=== PATIENT | female | born 1970 | race Caucasian/White ===

== ENCOUNTER → 2016-12-19 | Outpatient (CLI) | payer BC, OTHER ==
[~2016-12-19] VITALS: Ht 162.6 cm; Wt 51.4 kg
[~2016-12-19] MED LIST: ALDACTONE25 MG PO; ALLEGRA ALLERG180 MG PO; BENADRYL25 MG; CARBATROL200 MG PO; CYMBALTA60 MG PO; FLONASE 0.05%50 MCG NASAL; HYDROCODONE-AP1 EAC6 PO; LYRICA 50 MG50 MG; LYRICA150 MG PO; MICROGESTIN1 EAC1 PO; NEURONTIN 300300 M1 PO; NEURONTIN600 MG PO; NORCO 5-325 TA1 EACH PO; PROZAC20 MG PO
--- NOTE | ~2016-12-19 | HPC ---
[facility] [place] [address] PAIN MANAGEMENT CONSULTATION Name: FRANCESCA DUARTE Room #: REG LUDA TempleFrancoisNinoskaFrancois#: [id number] Admission: 12/19/16 Attend Phys: Leonidas Streeter DO Discharge: Date of : 72 Report #: [id number] THIS REPORT FOR: //name// CC: Sheyla Streeter The patient is looking a pleasant 46-year-old female, prior seen for RSD left lower extremity complex regional pain syndrome. She had foot surgery of left lower extremity, 04/01/2016, left fibular sesamoidectomy and excision of neuroma. Unfortunately since that time, she has had ongoing neuropathic pain and discoloration of foot. We have done 2 series of 2 lumbar sympathetic blocks, 07/17/2016, 07/21/2016, and 07/25/2016 and again 09/01/2016, 09/05/2016, and 09/08/2016. She really only got short-term relief, only one of the blocks afforded very good relief. She returns to the pain clinic today. We had discussed the spinal cord stimulator, in fact had received authorization for same, having had a psychological evaluation showing no impediments. Her SCS trial was plannned for last month (October 2016) , but symptoms got a little bit better, so the patient wisely postponed. Unfortunately symptoms have recurred without antecedent trauma, somewhat with a vengance. The patient notes pain is quite problematic. She rates it 7/10. She did resume her gabapentin and Dr. Andreas Pete started her on some Cymbalta as well, currently taking 60 mg (gabapentin 300 mg 5 a day). She has some efficacy with this, but notes pain is significantly interfering with function. She is desirous of moving forward with spinal cord stimulator at this point. PHYSICAL EXAMINATION: Shows a 46-year-old female, BMI is 19.5 kilograms per meter squared. Again, subjective pain score 7/10. Vital signs are stable as noted in the EMR. She has a profound dusky changes in the left foot, cool to palpation up to about mid calf. Decreased range of motion. Hyperpathia and allodynia noted throughout the foot. ASSESSMENT: Reflex sympathetic dystrophy, left lower extremity complex regional pain syndrome. RECOMMENDATIONS: I had a prolonged visit with the patient today from 9:24 to 9:50, greater than 50% of this 25 plus minute visit was spent counseling the patient. We have elected to add a sodium channel membrane stabilizing agent to see if we can get some synergy with the gabapentin, Tegretol 200 mg b.i.d. I did renew her gabapentin 300 mg 1 in the morning, 1 in the afternoon, 3 at night. I will follow up in 1 month to evaluate efficacy of medication changes. If symptoms are not abating significantly, we will move forward with spinal cord stimulator trial. We reviewed risks and benefits of SCS in general, and specifically noted the differences between high frequency stim (Nevro device) wherein patient typically does not feel the stimulation, but also must charge daily and cannot [address] [address] PAIN MANAGEMENT CONSULTATION Name: DAERoshanFRANCESCA PAINTER Room #: REG LUDA Treviño#: [id number] Admission: 12/19/16 Attend Phys: Leonidas Streeter DO Discharge: Date of : 72 Report #: [id number] get an MRI of the spine versus the more conventional SCS devices which do produce a parathesia, but are MRI compatible and my require less frequent charging. Given the issues with patients foot which started this issue, she may benefit from using a SCS which may allow the patient to get MRIs of the lumbar spine and the lower extremity if needed. Ultimately I will defer to the patient and of course what her insurance will allow. ASSESSMENT: Neuropathic pain, left lower extremity complex regional pain syndrome requiring complex medication management, discharged in good and stable condition after prolonged visit. <ELECTRONICALLY SIGNED> By: Leonidas Streeter DO 12/22/16 1228 [id number] Leonidas Streeter DO /nt
[2016-12-19 09:18] VITALS: BP 129/84
== END | disposition home or self-care (01) ==
LOC: PAIN 11-06 15:14
DX: G90.522 Complex regional pain syndrome I of left lower limb (principal); M79.2 Neuralgia and neuritis, unspecified

== ENCOUNTER → 2017-02-16 | Outpatient (CLI) | payer BC, OTHER ==
[~2017-02-16] VITALS: Ht 162.6 cm; Wt 52.6 kg
[2017-02-16 13:06] VITALS: BP 126/85
== END ==
LOC: PAIN 07:11
DX: G89.4 Chronic pain syndrome (principal); F41.8 Other specified anxiety disorders

== ENCOUNTER → 2017-02-19 | Outpatient (CLI) | payer BC, OTHER ==
[~2017-02-19] VITALS: Ht 162.6 cm; Wt 52.4 kg
[~2017-02-19] MED LIST changes: +AUGMENTIN 875875 MG PO; +DIPHENHIST50 MG PO
--- NOTE | ~2017-02-19 | HPC ---
[facility] [place] [address] PAIN MANAGEMENT CONSULTATION Name: FRANCESCA DUARTE Room #: REG LUDA TempleFrancoisNinoskaFrancois#: [id number] Admission: 02/19/17 Attend Phys: Leonidas Streeter DO Discharge: Date of : 72 Report #: [id number] THIS REPORT FOR: //name// CC: Sheyla Streeter HISTORY OF PRESENT ILLNESS: The patient is a very pleasant 47-year-old female being treated for neuropathic pain. Left lower extremity has Nevro spinal cord stimulator placed 2 weeks ago with overall improvement of the radicular pain. I saw her 1 week ago and incisions look great, unfortunately she tells me today she is getting some pruritus, itching and pain at the spinal cord stimulator generator site as well as at the anchor site for the leads. PHYSICAL EXAMINATION: GENERAL: A 47-year-old female, BMI is 19 kilograms per meter squared. VITAL SIGNS: She has a low grade temperature 99.2, blood pressure 121/99, pulse 105, respirations are 14. There is a little bit of rubor and calor noted over the generator pocket, there feels to be trace of swelling though I cannot detect any obviously fluctuant material. The midline incision also appears to be a little erythematous and warm. No drainage is noted. The incision itself looks to be healing. Concern for infection at the surgical site. I did order a CBC today, but given the patient systemic illness (a low grade temperature) and increasing pain, erythema, which should be a healing incision, we elected to start the patient on antibiotic to cover grade him positive cocci. SHE IS ALLERGIC TO CIPROFLOXIN AND CEFTIN. We elected to start Augmentin 875 b.i.d. I did contact her implanting surgeon, Dr. Cabrales. He asked to see the patient tomorrow in his clinic and I informed the patient of such. I would like to see her back in 1 week if she is not actively following with her implanting surgeon. <ELECTRONICALLY SIGNED> By: Leonidas Streeter DO 02/20/17 1138 [id number] 0830 Leonidas Streeter DO /nt
[2017-02-19 13:27] VITALS: BP 121/99
== END ==
LOC: PAIN 07:08
DX: G89.4 Chronic pain syndrome (principal); F41.8 Other specified anxiety disorders

== ENCOUNTER → 2017-02-26 | Outpatient (CLI) | payer BC, OTHER ==
[~2017-02-26] VITALS: Ht 162.6 cm; Wt 52.0 kg
--- NOTE | ~2017-02-26 | HPC ---
[facility] [place] [address] PAIN MANAGEMENT CONSULTATION Name: FRANCESCA DUARTE Room #: REG LUDA TempleFrancoisNinoskaFrancois#: [id number] Admission: 02/26/17 Attend Phys: Leonidas Streeter DO Discharge: Date of : 72 Report #: [id number] THIS REPORT FOR: //name// CC: Sheyla Streeter HISTORY OF PRESENT ILLNESS: The patient is a 47-year-old female, seen last week status post spinal cord stimulator implant. She had developed an acute infection at the site. I started the patient on Augmentin 875 mg b.i.d. She did follow up with her implant surgeon, Dr. Cabrales, the following day. She returns to pain clinic today noting the area looks good. The pruritus before is resolving. She is afebrile, temperature 97 degrees. 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 She notes tenderness at the surgical site is nominal. PHYSICAL EXAMINATION: She is a 47-year-old female. BMI is 19.7 kg/m2. Vital signs are stable. Again, she is afebrile. Rises from chair easily. Gait is tandem. Both surgical incisions sides, the midline thoracolumbar incision and the right gluteal pocket appear to be healing nicely. There is no drainage noted. No fluctuance appreciated. No warmth appreciated. There is minimal erythema at the pocket side. I can appreciate no erythema in the midline incision. The patient still has about 4 days of antibiotic left. ASSESSMENT: Surgical site infection. The patient with neuropathic pain status post spinal cord stimulator implant. RECOMMENDATIONS: 1. Complete antibiotics. 2. Follow up with Dr. Shmuel Cabrales tomorrow for return to work and further evaluation. 3. I suggested the patient take her temperature daily for the next 30 days if there is any persistent temperature rise over 99 degrees, I would like to see the patient back for reevaluation. 4. The patient is desirous of weaning off of current medications including gabapentin 300 mg 1 the morning, 2 at night and Cymbalta 60 mg. I suggest she started by dropping 1 gabapentin tablet weekly, i.e., taking it one less tablet in current dosing weekly until complete. I would like to see her back in 4 weeks for reevaluation. We may consider rotating to 30 mg Cymbalta for 30 days and then off at that time. Discharged in good and stable condition. By: [id number] Leonidas Streeter DO /nt
[2017-02-26 11:15] VITALS: BP 122/76
== END | disposition home or self-care (01) ==
LOC: PAIN 06:59
DX: T85.840A Pain due to nervous system prosthetic devices, implants and grafts, initial encounter (principal); G89.18 Other acute postprocedural pain

== ENCOUNTER → 2017-04-02 | Outpatient (CLI) | payer BC, OTHER ==
[~2017-04-02] VITALS: Ht 162.6 cm; Wt 52.3 kg
[~2017-04-02] MED LIST changes: +GRALISE600 MG PO
--- NOTE | ~2017-04-02 | HPC ---
[facility] [address] [place] [address] PAIN MANAGEMENT CONSULTATION Name: FRANCESCA DUARTE Room #: REG LUDA TempleFrancoisNinoskaFrancois#: [id number] Admission: 04/02/17 Attend Phys: Leonidas Streeter DO Discharge: Date of : 72 Report #: [id number] THIS REPORT FOR: //name// CC: Sheyla Streeter The patient is a very pleasant 47-year-old female being treated for RSD left foot, neuropathic pain requiring complex medication management. We have trialed a spinal cord stimulator with excellent efficacy and this was implanted 02/09/2017. After initial scare regarding an infection, we will treat with antibiotics and appearing to do quite well in her last visit 02/26/2017, we elected to start weaning gabapentin. She has completely off of gabapentin now, but unfortunately notes the pain has significantly recurred, it is nearly back to baseline in that left foot. PHYSICAL EXAMINATION: Otherwise unchanged. We reviewed the insertion and spinal cord stimulator pocket site. They appear unremarkable. I imaged the leads, they appear to be nicely covering the T9-T10 interspace though, they have come down a little bit, looks like at last image, the leads were at T8 and covering T10. They are now touching in the lower third of T8 and top half of T11. This has come down perhaps half the segment. Long discussion with the patient today about therapeutic options. ASSESSMENT: Symptomatic reflex sympathetic dystrophy left foot, neuropathic pain requiring complex medication management. RECOMMENDATION: The patient has failed Lyrica in the past. She has now failed gabapentin (she was having cognitive impairment with that agent). We will start Gralise. I gave her a starter pack and a prescription for 600 mg extended release tablets with instructions to take 3 with dinner. She will start this after the starter pack. If at some point, she starts to have cognitive impairment or sedation; I will have her drop back 2 tablets with dinner. I will see her back in 4 weeks for reevaluation. I did speak with the Kim rep today (Sanjuanita). We reviewed the images of the lead, slight caudal migration. If returning to a calcium channel membrane stabilizing agent does not afford significant improvement, they will reach out to her for reprogramming. <ELECTRONICALLY SIGNED> By: Leonidas Streeter DO 04/03/17 0837 1610 2318 Leonidas Streeter DO /nt
[2017-04-02 14:41] VITALS: BP 140/88
== END ==
LOC: PAIN 07:20
DX: G90.522 Complex regional pain syndrome I of left lower limb (principal); F10.21 Alcohol dependence, in remission

== ENCOUNTER → 2017-07-02 | Outpatient (CLI) | payer BC, OTHER ==
[~2017-07-02] VITALS: Ht 162.6 cm; Wt 50.8 kg
[~2017-07-02] MED LIST changes: +HYDROCODONE-APA1 TA1 PO
--- NOTE | ~2017-07-02 | HPC ---
[facility] [place] [address] PAIN MANAGEMENT CONSULTATION Name: FRANCESCA DUARTE Room #: REG LUDA Hudson#: [id number] Admission: 07/02/17 Attend Phys: Leonidas Streeter DO Discharge: Date of : 72 Report #: [id number] THIS REPORT FOR: //name// CC: Sheyla Streeter The patient is a 47-year-old female being treated for RSD, left lower extremity neuropathic pain requiring complex medication management. She had a spinal cord stimulator implanted in January as she has had significant efficacy with this. Last visit, 04/02/2017. She had acute exacerbation of symptoms. We did have Nevro contact her and reprogrammed the stimulator. I had viewed the leads and they had migrated somewhat caudad. We started the patient on Gralise having filled gabapentin and Lyrica. She was continued on Cymbalta. She returns to the pain clinic today noting she is doing remarkably well. Rates her pain 3 on a VAS. She would like to wean off Cymbalta and Gralise. She is currently taking 900 mg of Gralise daily, 60 mg of Cymbalta. Today, she knows how to handle occasional "flare-ups." She states with increased physical activity or trauma to the left foot, she will have acute exacerbation of pain. She usually treats this with ice, elevation and nonsteroidal anti-inflammatory agents. She has used rare hydrocodone 7.5/325. I believe her last hydrocodone prescription was generated February 13 for 45 tablets. Physical exam shows 47-year-old female, petite with a BMI of 19.2 kilograms per meter squared. Vital signs are stable as noted in the EMR. Rises from chair easily. Gait is tandem. Left lower extremity looks fairly unremarkable at this time. I evaluated the IPG which is in the right gluteal area. The superior aspect is palpable. Skin is moderately thin though not worrisome. Did stress the patient that she should keep an eye on this. If at some point, it does become inflamed and/or skin starts to thin (she still has 2 or 3 mm of subcutaneous tissue here), we will want to consider revising the pocket but presently that is certainly not urgent. We talked today at length today about weaning agents, we elected to start weaning Gralise. I gave her a sample starter pack. We will have her decrease from 900-600 mg for a week down to 300 mg for a week and then discontinue. If at any point on this wean she starts to note increasing symptoms, I will have her simply resume the last effective dose. I would like to see her back in about 4 weeks for reevaluation. Ostensibly, she should be off the Gralise at that time. We will likely simply write for 30 mg Cymbalta for short course and then wean off this as well. The patient was discharged in good and stable condition. She was seen from approximately 1328 to 1400. Greater than 50% of this time was spent counseling [address] [address] PAIN MANAGEMENT CONSULTATION Name: FRANCESCA DUARTE Room #: DELIA Treviño#: [id number] Admission: 07/02/17 Attend Phys: Leonidas Streeter, DO Discharge: Date of : 72 Report #: [id number] the patient, reviewing therapeutic options and discussing our proposed therapeutic course. By: [id number] Leonidas Streeter DO /petty
[2017-07-02 13:23] VITALS: BP 132/78
== END | disposition home or self-care (01) ==
LOC: PAIN 04-30 11:07
DX: Z76.0 Encounter for issue of repeat prescription (principal); G90.522 Complex regional pain syndrome I of left lower limb; Z98.890 Other specified postprocedural states; Z79.891 Long term (current) use of opiate analgesic; Z88.8 Allergy status to other drugs, medicaments and biological substances

== ENCOUNTER → 2018-01-14 | Outpatient (CLI) | payer BC, OTHER ==
[~2018-01-14] VITALS: Ht 162.6 cm; Wt 53.4 kg
[~2018-01-14] MED LIST changes: +ALEVE220 MG PO; +CYMBALTA30 MG PO; +GRALISE300 MG PO
--- NOTE | ~2018-01-14 | HPC ---
[facility] [place] [address] PAIN MANAGEMENT CONSULTATION Name: FRANCESCA DUARTE Room #: REG LUDA Hudson#: [id number] Admission: 01/14/18 Attend Phys: Leonidas Streeter DO Discharge: Date of : 72 Report #: [id number] THIS REPORT FOR: //name// CC: Sheyla Streeter The patient is a 48-year-old female, being treated for RSD left lower extremity. Last visit 10/05/2017. She has a Nevro high frequency spinal cord stimulator in place and she elected to wean off of Gralise and Cymbalta. She returns to pain clinic today. She has successfully weaned off of all agents, unfortunately within the past month without antecedent trauma, her symptoms have begun to recur. She is tearful today noting that the left lower extremity RSD is recurring and she is actually starting to get some tingling in the right lower extremity as well. She has not had excellent relief with prior lumbar sympathetic blocks, hence progressed with spinal cord stimulator. Today, she notes the pain is 7-8 on a VAS. She notes she has not fallen, but she does feel that her functional status has significantly decreased. She progressed to the point that she was actually running over the [place] holidays, but now notes she starting on 12/31/2017 pain recurred and left foot has started to become quite more problematic again. She has had Nevro, reprogramed the stimulator several times with dwindling efficacy. She does have a small dog 2-year-old Doxin that she rescued and she has even been unable to walk this dog due to ongoing pain. We spent a prolonged visit today from 11:28-12:05, greater than 50% of the 25 plus minute visit was spent counseling the patient. With ongoing pain that she describes as constant, sharp, throbbing and burning and frustration resulting in tearful intervals, we elected to resume Gralise, she had better relief with this over the past. I did give her a sample to titrate that medication upwards. We will see her in 4 weeks for reevaluation. We may consider resumption of Cymbalta at least at a low dose to help with anxiety and perhaps titrating back up to 60 mg to help with neuropathic pain as well. If symptoms continue to be problematic in the bilateral lower extremities, we may consider a single lumbar sympathetic block. PHYSICAL EXAMINATION: Otherwise, unchanged. Modestly antalgic gait, hyperpathia, allodynia in the left lower extremity with some paresthesia in the right leg as well. [address] [address] PAIN MANAGEMENT CONSULTATION Name: FRANCESCA DUARTE Room #: REG LUDA Treviño#: [id number] Admission: 01/14/18 Attend Phys: Leonidas Streeter DO Discharge: Date of : 72 Report #: [id number] ASSESSMENT: Symptomatic neuropathic pain, right greater than left lower extremity neuropathic pain requiring complex medication management. RECOMMENDATION: Titration of Gralise as noted above. Follow up in 4 weeks for reevaluation. Discharged in good and stable condition after a prolonged visit. <ELECTRONICALLY SIGNED> By: Leonidas Streeter DO 01/18/18 0747 1226 1746 Leonidas Streeter DO /nt
[2018-01-14 11:15] VITALS: BP 111/79
== END ==
LOC: PAIN 01-11 12:19
DX: M79.2 Neuralgia and neuritis, unspecified (principal); Z79.899 Other long term (current) drug therapy

== ENCOUNTER → 2018-02-11 | Outpatient (CLI) | payer BC, OTHER ==
[~2018-02-11] VITALS: Ht 162.6 cm; Wt 54.6 kg
--- NOTE | ~2018-02-11 | HPC ---
[facility] [place] [address] [address] PAIN MANAGEMENT CONSULTATION Name: FRANCESCA DUARTE Room #: REG LUDA TempleFrancoisNinoska.#: [id number] Admission: 02/11/18 Attend Phys: Leonidas Streeter DO Discharge: Date of : 72 Report #: [id number] THIS REPORT FOR: //name// CC: Sheyla Streeter The patient is a pleasant 48-year-old female being treated for RSD, initially left lower extremity, but now somewhat bilateral requiring complex medication management. She has a Nevro spinal cord stimulator in place. Last seen in pain clinic, 01/14/2018. She noted her symptoms are starting to recur subsequent to fall. She struck her low back. We resumed the use of Gralise titrated up to 900 mg at bedtime (one 600 and one 300 mg tablet). A 1200 mg caused untoward sedation. She returns to pain clinic today, we did have the Nevro device rep here. The device was interrogated, seems to be working well. All contact points are intact. She subjectively rates her pain a 4 on a VAS. She notes symptoms of RSD, left greater than right lower extremity are generally controlled. She is ambulating well. PHYSICAL EXAMINATION: Shows pleasant 48-year-old female, BMI is 20.7 kilograms per meter squared. Blood pressure 130/77, pulse 81, respirations are 14. She has not fallen in the last 3 months. Medication list was reconciled. Opiate risk assessment tool scores are in the low risk at 1. Functional assessment tool scores are 4070. She does not use tobacco products. Arises from chair using armrest. Gait is tandem. Little tenderness in the low back. No discrete trigger points are noted. Does have some hyperpathia, allodynia about the left lower extremity though general RSD symptoms are well controlled at present. Reviewed therapeutic options today. Given that she is doing reasonably well on current medications, we have elected to simply continue Gralise one 600 mg and one 300 mg tablet at bedtime. I have taken the liberty of writing for prescription for 300 mg tablets, 30 tablets with 5 refills. She has quantity sufficient of the 600 mg tablets at home for several months. Continue with spinal cord stimulator (use 15/06, has to recharge daily). I will be happy to see the patient if symptoms exacerbate. Currently, she is stable on baseline medications. No further changes are noted. The patient does use naproxen p.r.n., rare hydrocodone 7.5/325. I will be happy to see the patient on an as needed basis; however, I did point out that Dr. Sheyla Holliday can continue the Gralise if so desired. I will be happy to see the patient for interventional therapy or opiate management if requested. [address] [address] PAIN MANAGEMENT CONSULTATION Name: FRANCESCA DUARTE Room #: REG LUDA Treviño#: [id number] Admission: 02/11/18 Attend Phys: Leonidas Streeter DO Discharge: Date of : 72 Report #: [id number] Thank you for allowing me to participate in the patient's care. <ELECTRONICALLY SIGNED> By: Leonidas Streeter DO 02/15/18 0714 1221 1234 Leonidas Streeter DO /nt
[2018-02-11 10:08] VITALS: BP 130/77
== END ==
LOC: PAIN 06:59
DX: G90.522 Complex regional pain syndrome I of left lower limb (principal); Z79.899 Other long term (current) drug therapy